=== PATIENT | male | born 1985 | race Caucasian/White ===

== ENCOUNTER 2017-08-18 16:44 | Emergency (ER) | payer MEDICAID ==
[~2017-08-18] VITALS: Ht 180.3 cm; Wt 67.6 kg
[2017-08-18 17:38] VITALS: Ht 180.3 cm; Wt 67.6 kg
[2017-08-18 19:35] VITALS: BP 154/85
== END 2017-08-18 19:35 | disposition home or self-care (01) ==
LOC: ED 16:44
DX: S05.01XA Injury of conjunctiva and corneal abrasion without foreign body, right eye, initial encounter (principal); F17.210 Nicotine dependence, cigarettes, uncomplicated; F12.90 Cannabis use, unspecified, uncomplicated; W19.XXXA Unspecified fall, initial encounter; Y93.89 Activity, other specified; Y92.89 Other specified places as the place of occurrence of the external cause; Y99.8 Other external cause status
CPT/HCPCS: 90715